=== PATIENT | male | born 1955 | race Caucasian/White ===

== ENCOUNTER 2020-05-21 12:18 | Inpatient (IN) | payer OTHER ==
[~2020-05-21] VITALS: Ht 180.3 cm; Wt 50.0 kg
[2020-05-21 16:00] VITALS: BP 99/67
--- NOTE | 2020-05-21 19:31 | NUR ---
1440 PATIENT ADMITTED TO ROOM 522A VIA CART WITH EMS. PATIENT TRANSFERED TO BED WITH ASSIST X1. VS- BP 99/67 P 83 RESP 18 TEMP 99.6 O2 SATS 97%. PATIENT RESTING IN BED WITH EYES CLOSED WHEN RUBBER OFF INTO ROOM FOR ASSESSMENT. PATIENT HT 5'11" WT- 110.0 PER BED. PATIENT IS CALM AND COOPERATIVE. PATIENT IS SHAKING AND ASKING FOR HIS MEDICATIONS. PATIENT WAS EXPLAINED THAT DR WOULD LOOK AT THEM AND GET ORDERED SOON POSSIBLE. PATIENT UP TO BR WITH ASSIST VOIDED X1. PATIENT BACK TO BED AMB WITH WALKER WITH SLOW PACE. PATIENT STATES "I CAN NOT STAY IN THIS ROOM BECAUSE I WILL HAVE TO MUCH ANXIETY WITH THIS ROOMATE". HE C/O THE NOISE AND THE PATIENT YELLING OUT. PATIENT MEDICAL HX OF PARKINSONS, ULCERS, IBS AND HYPOTENTION. PATIENT HARD TO UNDERSTAND PATIENT WHISPERS. PATIENT ALERT AND ORIENTED X3. BS ACTIVE. BRUISING NOTED TO LEFT ANTECUBE, PATIENT STATES DUE TO LAB DRAW AND PRIOR IV'S. PATIENT OUT TO DAYROOM VIA WC FOR DINNER. PATIENT C/O AMB NOT FEELING WELL AND HAVING SOME NAUSEA. PATIENT DID TAKE A FEW BITES OF MASHPOTATOES AND GRAVY. RUBBER OFF TAKES PATIENT BP DUE TO PATIENT STATING NOT FEELING GOOD. BP- 98/63 P- 84. PATIENT TO BEDROOM AND BACK TO BED X 2 ASSIST. PATIENT GIVEN PHONE TO CALL SIGNIFICANT OTHER. PATIENT REPOSITIONED IN BED AND OFFERED H2O. PATIENT REQUEST A SNACK AND JUICE. REPORT GIVEN TO ON COMING SHIFT.
[2020-05-21 20:19] VITALS: BP 102/64
--- NOTE | 2020-05-22 06:00 | NUR ---
05-22-20 CARE TRANSFERED 1914 OBSERVED PT SUPINE IN BED WITH EYES OPEN. 2004 PT AAOX3, VSS, RR EVEN AND NONLABORED ON RA. PT HAD UE AND LE TREMORS WITH JERKING MOTION R/T PARKINSON'S. PT DENIES SI/HI AND PAIN. DURING PRODUCTION COORDINATOR PT HAD NO DIFFICULTIES. PT HAD REQUESTED A ROOM MOVE R/T ANXIETY AND NOT BEING ABLE TO SLEEP BECAUSE ROOMMATE WAS YELLING AND SCREAMING THROUGHOUT NIGHT. ASSISTED PT WITH HS SNACK. ZERO S/S OF ACUTE DISTRESS NOTED, PT WILL CONTINUE TO BE MONITOR PER [facility] PROTOCOL.
--- NOTE | 2020-05-22 09:32 | NUR ---
0700 ASSUMED CARE OF PATIENT, PATIENT IN BED AT THAT TIME. PATIENT TO DAYROOM VIA RUPESH CHAIR AT 0720, SITS AT TABLE WITH OTHERS. PT C/O BEING COLD, BLANKET PLACED OVER PATIENT. PATIENT STATES ANXIETY INCREASING DUE TO THE NOISE AND BEING IN DAYROOM. PATIENT OBSERVED AMB IN BOYD INFRONT OF NURSES STATION. PATIENT WEAK AND UNSTEADY. PATIENT COMPLAINS ABOUT ABD PAIN AND NEED TO GO TO BATHROOM. PATIENT STATES "I'M GONNA HAVE DIAHERRA, MY STOMACH HURTS". MOTION PICTURE CRITIC ASSISTS PATIENT TO BATHROOM, PATIENT SITTING ON TOILET FOR 5 MIN WITH NO RESULTS. PATIENT REQUESTING MEDICATION AT THAT MOMENT AND INSISTING HE NEEDS IT NOW. PATIENT REFUSING TO GET IN CHAIR. AFTER 10 MIN OF SITTING ON TOILET PATIENT ASSISTED TO CHAIR AND BACK OUT TO DAYROOM. PATIENT C/O FEELING IF HE WILL FAINT. MEDICATION CRUSHED AND WHEN ATTEMPTING TO GIVE PATIENT HIS MEDS PATIENT HAS EYES CLOSED AND WILL NOT OPEN EYES. SOCIAL MEDIA ANALYST WALKS AWAY WITH MEDS PATIENT OPENS EYES AND WITH A WHISPER STATES "OK I WILL TRY TO TAKE THEM". MEDICATIONS TAKEN CRUSHED IN APPLESAUCE. XANAX 0.5 MG PO PRN GIVEN FOR INCREASED ANXIETY. C/O OF BEING COLD, BLANKET APPLIED PATIENT ATE A FEW BITES OF MEAL. PATIENT PRESENT FOR GROUP, WILL CONTINUE TO OBSERVE.
--- NOTE | 2020-05-22 14:12 | NUR ---
PATIENT REQUESTS PAIN MEDICATION FOR GENERALIZED PAIN RATING AT A 5. TYLENOL 650MG PO GIVEN AT 1405
--- NOTE | 2020-05-22 14:52 | NUR ---
DATA VISUALIZATION DEVELOPER TO PATIENTS ROOM, PATIENT SLEEPING AT THAT TIME. WILL CHECK BACK PATIENT REQUESTED XANAX WHEN AVAILABLE.
[2020-05-22 19:57] VITALS: BP 139/79
--- NOTE | 2020-05-23 04:06 | NUR ---
Pt. rested quietly most of the shift in his bed. Po tylenol given for c/o a headache (see emar) with some relief noted. He also had xanax for anxiety (see emar) with some relief noted. Pt. with noted tremors from his Parkinson's disease. Cardopa med helpful.
--- NOTE | 2020-05-23 08:10 | NUR ---
PT REFUSED TYLENOL THIS AM AND STOOL LAXATIVE. PT HAD A BM. PT REFUSED TO GO OUT TO EAT BREAKFAST. PT WANTING SOMETHING FOR ANXIETY. PT HAS TREMORS TO ARMS AND HANDS.
--- NOTE | 2020-05-23 08:11 | NUR ---
PT RECIEVED XANAX 0.5MG FOR ANXIETY.
--- NOTE | 2020-05-23 08:39 | NUR ---
on 05/22/2020 @ 1700 BRI met with Pt in his room with Dr. Ceja. Dr. Ceja informed that due to Pt's medication regimen and a recommendation fronm the Pt's PCP against inpt psy the Pt should be discharged as soon as possible. Dr. Ceja informed the Pt had a pending admission to [facility]. The confirmed the information and provided SW with his girlfriend Katrina's phone number, . @ [phone] Bri called Katrina concerning placement. Katrina stated the Pt did have a placment at [facility] and Provided with the phone number to Ericka [phone]. @[phone] BRI contacted Ericka at [facility], who informed the Pt does have a bed on the skilled unit. Sara stated they could accept the Pt on 05/23/2020 however they will need a payment from the Pt's girlfriend/DPOA before scheduling transportation.
--- NOTE | 2020-05-23 08:57 | NUR ---
BRI called Sara, , with [facility]. Yanely confirmed she spoke with the Pt's girlfriend and will be able to set up transportation. Pt will be picked up by [facility] @ 11am.
[2020-05-23 09:00] VITALS: BP 117/67
[2020-05-23] MEDS ORDERED: ZOLOFT 50 MG TA50 M1 PO (09:20)
[2020-05-23] MEDS ORDERED: XANAX 0.5 MG0.5 M1 PO (09:21)
[2020-05-23] MEDS ORDERED: BUSPIRONE HCL10 MG PO (09:21)
[2020-05-23] MEDS ORDERED: CARBIDOPA-LEVO1 EAC9 PO (09:22)
[2020-05-23] MEDS ORDERED: SENNA8.6 MG PO (09:23)
[2020-05-23] MEDS ORDERED: MELATONIN5 M1 PO (09:23)
--- NOTE | 2020-05-23 10:57 | NUR ---
PT SITTING OUT IN DINING ROOM IN W/C. PT STATED HE WANTED HIS SINEMET NOW OR HE WAS GOING TO PASS OUT. PT STATED HE TAKES HIS MED CRUSHED IN APPLESAUCE. PT ABLE TO TAKE MED IN APPLESAUCE WITHOUT ANY ISSUES. [facility].
--- NOTE | 2020-05-23 11:55 | NUR ---
GAVE PT DRINKS OF WATER AND PT WANTED APPLESAUCE. PT LETS NEEDS KNOWN.
--- NOTE | 2020-05-23 12:39 | NUR ---
PT LEFT VIA W/C VAN. PT ABLE TO TRANSFER VIA ASSISTANCE X1. PT ABLE TO BEAR WT.
--- NOTE | 2020-05-24 16:57 | H ---
[facility] [place] [address] HISTORY AND PHYSICAL Name: CINTHYA JAIN Room #: 517-A [facility] IN M.R.#: [id number] Admission: 05/21/20 Attend Phys: Raffy Sanchez DO Discharge: 05/23/20 Date of : 51 Report #: [id number] THIS REPORT FOR: cc: ZACHARIAH - Family physician unknown FAM - Family physician unknown Raffy Sanchez DO ~ CC: Raffy SONI unknown DATE OF SERVICE: 05/21/2020 INPATIENT PSYCHIATRIC EVALUATION Please note it is challenging to get history from the patient. He is very anxious, has advanced Parkinson's disease, is very medication focused. Additional history was obtained between conversation with his lifetime partner, Katrina, who is in [place], [place] as well as notes from [facility] where he was referred from. Specific reasons for admission were prominent depression, diagnosis of panic disorder, Parkinson's disease, mood disorder due to general medical condition. HISTORY OF PRESENT ILLNESS: This is a 65-year-old male who was admitted on 05/14/2020 to [facility]. The patient's recent history has been complicated with several significant stays and several presentations to the Emergency Room. He reported that he was admitted to the hospital for chest pain, shortness of breath and abdominal pain and reported ongoing anxiety, panic attacks. Psychiatrist that saw him, Dr. Smith, on 05/15/2020 stated that he never had panic attacks earlier in life. He began having panic attacks 5 months ago. He states that they began right after they increased "my carbidopa/levodopa." The patient states that shortly after they increased meds for Parkinson's, he began to have 2-3 panic attacks per day. Prior to that he claims he never had any episodes like this. He states his chest hurts. He feels that he cannot breathe and he feels that he may . He is unable to explain how these episodes last and he is somewhat limited historian at times. At [facility], he denied SI, HI, auditory, visual or tactile hallucinations. Denies any history of self-harm. Reports he is med compliant, otherwise taking Zoloft, Xanax and BuSpar. States that Xanax is usually always effective for anxiety or panic. Interestingly at that time, he was not desiring an inpatient psychiatric admission. He has no outpatient mental health provider, but is open to referral. Denied alcohol or illicit drug use. He states that anxiety symptoms are usually caused by events or loud noises. He said an example someone knocking loudly on the door at his home, is a trigger. He was future oriented and maintains it. He denied any thoughts or intent to harm himself. Denies other perceived medication side effects. Reports that it is challenging to take Parkinson's meds every 3 hours and that routine makes him anxious as well. Denied past suicide attempts or previous [facility] [address] [place] [address] HISTORY AND PHYSICAL Name: CINTHYA JAIN Room #: 517-A [facility] IN M.R.#: [id number] Admission: 05/21/20 Attend Phys: Raffy Sanchez, Discharge: 05/23/20 Date of : 51 Report #: [id number] psychiatric admissions. FAMILY PSYCHIATRIC HISTORY: Marked as noncontributory. SOCIAL HISTORY: no kids, longtime girlfriend but not , retired. SUBSTANCE ABUSE HISTORY: Denies alcohol or illicit drugs. Denies abuse or misuse of prescription [id number] meds. Denies history of being physically, sexually or emotionally abused. Radiology: He had acute abdominal series, which showed no acute nonobstructive bowel gas pattern. Permanent air and stool filled in colon may be due to ileus. His did tell me he had been admitted with an ileus. CT angio chest showed no evidence of pulmonary embolism. No significant findings. LABORATORY DATA: Laboratories from 05/15/2020 at the [facility] sodium 136, potassium 3.6, chloride 100, bicarbonate 20, anion gap 12, BUN 13, creatinine 0.6, GFR calculation 142, random glucose 92, magnesium 2.2. Troponin less than 0.02 x 2. White blood cell count 3.7, H and H 7.1 and 31.6, platelet count 198. SARS-2 is negative. Urinalysis was grossly normal. Additional laboratories from 05/14/2020; AST 17, ALT less than 6, alkaline phosphatase 81. NT-proBNP 53, total protein 6.3, albumin 3.6, lipase 113. PT 11.1, INR 1.0, APTT 19.1. Additional Parkinson's disease history. Katrina reported to me a 20-year history diagnosis. He is a patient of Dr. Donn Angel at [facility]. Apparently, there is a new kind of dopamine pump that requires Gastroenterology to insert. The patient was approved for it, but the device has not been inserted. It sounds like from her description he is facing carbidopa/levodopa burnout and this is the only good way to get it for him. Additional history is it sounds like there is condition panic mechanism where every 3 hours he is expecting this 25/100 two tabs to relieve his rigidity and tremulous symptoms secondary to Parkinson's disease. MEDICATIONS: Currently are carbidopa/levodopa 25/100 two tabs 2-1/2 hours, melatonin 5 mg p.o. at bedtime, sertraline 50 mg p.o. daily, BuSpar 50 mg twice a day. He was given 0.5 mg b.i.d. of Klonopin and alprazolam. I discontinued the Klonopin ____ 0.5 mg p.o. q. 6 p.r.n. PHYSICAL EXAMINATION: VITAL SIGNS: Here at [facility], temperature 36.6, pulse 76, respirations 16. BP was in the 90s and improved to 102/64 at 20:19. O2 sat 98% on room air. [facility] [address] [place] [address] HISTORY AND PHYSICAL Name: CINTHYA JAIN [place] Room #: 517-A [facility] IN M.R.#: [id number] Admission: 05/21/20 Attend Phys: Raffy Sanchez, DO Discharge: 05/23/20 Date of : 51 Report #: [id number] ALLERGIES: ERYTHROMYCIN BASE and NEOMYCIN by the way. MENTAL STATUS EXAMINATION: This is a well-developed, thin, frail, ill appearing, BMI 50.4 male. Full code at this time. Attention limited. Concentration limited. Speech slow and soft. Thought process is linear and goal directed. Thought content, somatically focused on list of medication. Tremor visible. The patient is unable to ambulate, 1-2 person assist. Mood congruent, constricted. Anxious, restricted and congruent with affect. Insight limited. Judgment limited. Fund of knowledge at least average. FORMULATION: A 65-year-old male transferred from [facility] for crippling anxiety, profound depression secondary to advanced likely end-stage idiopathic Parkinson's disease. DIAGNOSES: At this time, mood disorder secondary to general medical condition, namely Parkinson's disease, panic disorder, numerous comorbidities, but most stemming from his Parkinson's disease including severe protein-calorie malnutrition, failure to thrive. PLAN: Evaluate, stabilize and obtain collateral. Coordinate care with Dr. Donn Angel in the Movement Disorders Department at [facility]. Discussed with Katrina that giving Sinemet every 2-1/2 hours on the psychiatric unit is just not practical, it will be against her treatment philosophy. I am going to leave it is in every 3 hours while awake. I will make contact with Dr. Angel tomorrow. For tonight, I will attempt to start Seroquel, I elected not to given the nature of this case and the complexity of this Parkinson's treatment. Time spent on this case at least 45 minutes. STRENGTHS: He is insured. he has significant other and his DPOA is now inactive at this point. We will screen for dementia. WEAKNESSES: Advanced Parkinson's disease, failure to thrive. <ELECTRONICALLY SIGNED> By: Raffy Sanchez DO 05/24/20 [id number] Raffy Sanchez DO /nt
--- NOTE | 2020-05-24 17:05 | D ---
[facility] [address] [address] DISCHARGE SUMMARY Name: CINTHYA JAIN Room #: 517-A [facility] IN M.R.#: [id number] Admission: 05/21/20 Attend Phys: Raffy Sanchez DO Discharge: 05/23/20 Date of : 51 Report #: [id number] THIS REPORT FOR: cc: ZACHARIAH - Family physician unknown FAM - Family physician unknown Raffy Sanchez DO ~ THIS REPORT FOR: //name// CC: Raffy SONI unknown DATE OF SERVICE: 05/23/2020 INPATIENT PSYCHIATRIC DISCHARGE SUMMARY ATTENDING PHYSICIAN: Raffy Sanchez DO WAREHOUSE ASSEMBLY WORKER AT THE TIME OF DISCHARGE: Cheryl Kendrick MD DISCHARGE DIAGNOSES: Mood disorder secondary to general medical condition, panic disorder, Parkinson's disease, end-stage. Additional comorbidities include general debility, deconditioning, insomnia due to known to be dosed every 2-1/2 to 3 hours of Sinemet. DISCHARGE PLAN: The patient will be discharged to [facility]. Psychiatric medical care to be provided by facility. Also, the patient has movement disorders neurology care by Dr. Donn Angel, [facility]. No laboratories done this admission, transferred from [facility]. DISCHARGE MEDICATIONS: Are as follows Sinemet 25/100 two tabs every 3 hours while awake, sertraline 50 mg oral daily, alprazolam 0.5 mg p.o. q. 6 p.r.n. for anxiety and agitation, buspirone tapering down 10 mg p.o. b.i.d., senna for stool softener 7.2 g p.o. b.i.d. REASON FOR ADMISSION: This is an 65-year-old male transferred from [facility] on the hospitalist service as he had significant weight loss, ongoing anxiety, unable to sleep. HOSPITAL COURSE: The patient was admitted to Geriatric Psychiatry Unit. The patient was highly focused on his Sinemet regimen. He reported upcoming placement of dopamine pump, I later confirmed with Dr. Donn Angel at . Unfortunately, those hospitalizations were largely for his placement of resources given the patient's medication regimen, numerous trials with [facility] [address] [place] [address] DISCHARGE SUMMARY Name: CINTHYA JAIN [facility] Room #: 517-A [facility] IN M.R.#: [id number] Admission: 05/21/20 Attend Phys: Raffy Sanchez DO Discharge: 05/23/20 Date of : 51 Report #: [id number] [address] med[address] with Dr[address] Angel. need to discharge him to SNF and to have dopamine pump placement in 1-[address] Angel. PHYSICAL EXAMINATION: VITAL SIGNS: At time of discharge, temperature 36.4, pulse 73, respirations 18, BP 115/67. MUSCULOSKELETAL: Variably ambulatory tremulous, ill-appearing. MENTAL STATUS EXAMINATION: This is a well-developed, ill-appearing male, appearing his stated age. Attention fair. Concentration limited. Speech is soft, normal rate. Thought process: Linear and goal directed. Thought content; no SI, no HI, no auditory, visual, or tactile hallucinations, is quite soft spoken. Mood and affect congruent, constricted. Insight limited. Judgment limited. Fund of knowledg no greater than average. PROGNOSIS: For this patient is guarded to poor given advanced Parkinson's disease, forgot to mention above this admission SLUMS score of 20/30. He is in mild cognitive impairment range. <ELECTRONICALLY SIGNED> By: Raffy Sanchez DO 05/24/20 1705 [id number] Raffy Sanchez DO /nt
== END 2020-05-23 12:48 | DRG 56 ==
LOC: SBH
PROVIDERS: ADMIT Psychiatry & Neurology Psychiatry; ATTEND Psychiatry & Neurology Psychiatry
DX: G20 Parkinson's disease (principal); F06.30 Mood disorder due to known physiological condition, unspecified; E43 Unspecified severe protein-calorie malnutrition; Z68.1 Body mass index [BMI] 19.9 or less, adult; F41.0 Panic disorder [episodic paroxysmal anxiety]; F32.9 Major depressive disorder, single episode, unspecified; F02.80 Dementia in other diseases classified elsewhere, unspecified severity, without behavioral disturbance, psychotic disturbance, mood disturbance, and anxiety; F41.1 Generalized anxiety disorder; G47.00 Insomnia, unspecified; K59.00 Constipation, unspecified; R53.81 Other malaise; I73.9 Peripheral vascular disease, unspecified; R62.7 Adult failure to thrive; Z88.1 Allergy status to other antibiotic agents
CPT/HCPCS: 10880